=== PATIENT | male | born 1995 | race Caucasian/White ===

== ENCOUNTER 2017-01-20 20:41 | Emergency (ER) | payer OTHER ==
[2017-01-20 21:21] VITALS: BP 140/82
--- NOTE | 2017-01-20 22:22 | ER Document Report ---
ED General - General Chief Complaint: Insect Bite Stated Complaint: POSSIBLE BUG BITE Time Seen by Provider: 01/20/17 22:14 Notes: Patient is a 21-year-old male presents with complaint of a small skin lesion on his left lower leg. He says it has become a little more red in color over the last several days. No redness that spreads beyond the lesion itself. No fevers. No swelling. No other complaints at this time. TRAVEL OUTSIDE OF THE [place] IN LAST 30 DAYS: No - Related Data Allergies/Adverse Reactions: No Known Allergies Allergy (Verified 01/20/17 21:17) Past Medical History - Social History Smoking Status: Never Smoker Frequency of alcohol use: None Drug Abuse: None Family History: Reviewed & Not Pertinent Renal/ Medical History: Denies: Hx Peritoneal Dialysis Review of Systems - Review of Systems Notes: My Normal Review Basic REVIEW OF SYSTEMS: CONSTITUTIONAL : Denies fever, chills, or sweats. Denies recent illness. GASTROINTESTINAL: Denies abdominal pain. Denies nausea, vomiting, or diarrhea. Denies constipation. MUSCULOSKELETAL: Denies neck or back pain or joint pain or swelling. SKIN: Skin lesion left lower leg. HEMATOLOGIC : Denies easy bruising or bleeding. LYMPHATIC: Denies swollen, enlarged glands. NEUROLOGICAL: Denies altered mental status or loss of consciousness. Denies headache. Denies weakness or paralysis or loss of use of either side. Denies problems with gait or speech. Denies sensory or motor loss. ALL OTHER SYSTEMS REVIEWED AND NEGATIVE. Physical Exam - Vital signs Vitals: Temp Pulse Resp BP Pulse Ox 98.5 F 76 14 140/82 H 100 01/20/17 21:17 01/20/17 21:17 01/20/17 21:17 01/20/17 21:17 01/20/17 21:17 - Notes Notes: General Appearance: Well nourished, alert, cooperative, no acute distress, no obvious discomfort. Vitals: reviewed, See vital signs table. Skin: Patient has a nickel sized lesion over the left lower leg that is scaly in appearance. No surrounding erythema. No swelling. Consistent with probable fungal infection. Neuro: speech clear, oriented x 3, normal affect, responds appropriately to questions. Course - Re-evaluation Re-evalutation: 01/21/17 06:33 Patient's lesion appears consistent with that of a fungal infection. I will place him on clotrimazole cream. Encouraged him return to ER if she has any redness or swelling from the lesion, fevers, or any further worsening of it. Patient agrees with plan and will be discharged home. Dictation of this chart was performed using voice recognition software; therefore, there may be some unintended grammatical errors. - Vital Signs Vital signs: Temp Pulse Resp BP Pulse Ox 98.5 F 76 14 140/82 H 100 01/20/17 21:01/20/17 21:01/20/17 21:17 01/20/17 21:01/20/17 21:17 Discharge - Discharge Clinical Impression: Skin lesion Condition: Good Disposition: HOME, SELF-CARE Additional Instructions: Please apply the cream to the lesion on your left leg twice a day. Based on its current appearance I suspect it is of fungal origin. If it does no improve after 1 week of treatment you may need to see a investment specialist for further evaluation or biopsy. Please return to the ER immediately if you have spreading redness of the surrounding skin, swelling, or enlargement of the lesion as this could be a sgin of a bacterial infection. Prescriptions: Clotrimazole 1 applic TP BID #1 cream.gm.
== END 2017-01-20 22:35 | disposition home or self-care (01) ==
LOC: ER 20:41
DX: L98.9 Disorder of the skin and subcutaneous tissue, unspecified (principal); S80.862A Insect bite (nonvenomous), left lower leg, initial encounter; W57.XXXA Bitten or stung by nonvenomous insect and other nonvenomous arthropods, initial encounter
CPT/HCPCS: 99281

== ENCOUNTER 2018-04-12 15:18 | Emergency (ER) | payer OTHER ==
[2018-04-12 15:37] VITALS: BP 151/85
[2018-04-12] MEDS ORDERED: TETRACAINE HCL 0.5% OPH SOLN 4 ML ONE (15:54)
[2018-04-12] MEDS ORDERED: TETRACAINE HCL 0.5% OPH SOLN 4 ML OD ONE (15:59)
--- NOTE | 2018-04-12 16:25 | ER Document Report ---
ED Medical Screen (RME) - General Chief Complaint: Redness of Eye Stated Complaint: RIGHT EYE IRRITATION, SWELLING Time Seen by Provider: 04/12/18 15:56 Mode of Arrival: Ambulatory Information source: Patient TRAVEL OUTSIDE OF THE [place] IN LAST 30 DAYS: No - HPI Patient complains to provider of: Irritation in the right eye Onset: Other - This 22-year-old man presents for evaluation of foreign body sensation in his right eye. He had a sensation that someone might of gotten into his eye after a haircut, began to itch the eye at which time his mother noted that with a little bit swollen and red, they decided to present to the emergency room for further investigation, this patient does have a history of Asperger's disease but is otherwise generally healthy man, does not wear corrective lenses or contacts at this time. No fevers no chills no other trauma to the eye. - Related Data Allergies/Adverse Reactions: No Known Allergies Allergy (Verified 04/12/18 15:59) Past Medical History - General Information source: Patient - Social History Chew tobacco use (# tins/day): No Frequency of alcohol use: Rare Drug Abuse: None Renal/ Medical History: Denies: Hx Peritoneal Dialysis - Immunizations Hx Diphtheria, Pertussis, Tetanus Vaccination: Yes Review of Systems - Review of Systems -: Yes All other systems reviewed and negative Physical Exam - Vital signs Vitals: Temp Pulse Resp BP Pulse Ox 97.9 F 85 20 151/85 H 99 04/12/18 15:36 04/12/18 15:36 04/12/18 15:36 04/12/18 15:36 04/12/18 15:36 - General General appearance: Appears well In distress: None - HEENT Head: Normocephalic Eyes: Other - Edema around the right eye, injection in the right eye Conjunctiva: Injected Cornea: Normal, Flourescein stain uptake - Lateral to the iris of the right eye at the 9 o'clock position, Other - Ecchymosis of the right eye Extraocular movements intact: Yes Eyelashes: Normal Pupils: PERRL - Respiratory Respiratory status: No respiratory distress Chest status: Nontender Breath sounds: Normal Chest palpation: Normal - Cardiovascular Rhythm: Regular Heart sounds: Normal auscultation Murmur: No - Abdominal Inspection: Normal Distension: No distension Tenderness: Nontender - Back Back: Normal - Extremities General upper extremity: Normal inspection, Nontender, Normal ROM, Normal strength General lower extremity: Normal inspection, Nontender, Normal ROM, Normal strength - Neurological Neuro grossly intact: Yes Cognition: Normal Orientation: AAOx4 Lili Coma Scale Eye Opening: Spontaneous Lili Coma Scale Verbal: Oriented [place] Coma Scale Motor: Obeys Commands Lili Coma Scale Total: 15 Speech: Normal Cranial nerves: Normal Motor strength normal: LUE, RUE, LLE, RLE - Psychological Associated symptoms: Normal affect Course - Re-evaluation Re-evalutation: 04/12/18 17:38 22-year-old male who presented with foreign body sensation in the right eye. Examination he is got obvious injection and swelling around the right eye. His eye does demonstrate some ecchymosis. Acuity is relatively spared, says he is at his baseline level of vision. Fluorescein staining of the eye demonstrates a slight uptake in the 9 o'clock position with a small abrasion not a true ulcer. There is no obvious foreign body, the lids were retracted extraocular movements were intact patient's pupils were equal and reactive. Given that the patient has what appears to be a small corneal abrasion will plan for this patient undergo treatment with Cipro drops as well as tears to help moisten the chemosis. He was given strict return precautions and encouraged follow-up with an [employer] team member in the coming days. - Vital Signs Vital signs: Temp Pulse Resp BP Pulse Ox 97.9 F 85 20 151/85 H 99 04/12/18 15:36 04/12/18 15:36 04/12/18 15:36 04/12/18 15:36 04/12/18 15:36 Doctor's Discharge - Discharge Clinical Impression: Corneal abrasion Qualifiers: Encounter type: initial encounter Laterality: right Qualified Code(s): S05.01XA - Injury of conjunctiva and corneal abrasion without foreign body, right eye, initial encounter Chemosis of conjunctiva Qualifiers: Laterality: right Qualified Code(s): H11.421 - Conjunctival edema, right eye Condition: Good Disposition: HOME, SELF-CARE Instructions: Antibiotic Therapy ([facility]), Corneal Abrasion ([facility]), Eyedrop Use ( [facility]) Additional Instructions: He was seen today in the emergency department for your corneal abrasion. He had evaluation including a physical exam, and exam of your eye with staining of your eye. Looks like he may have a small abrasion. Use the antibiotic drop prescribed to you as directed. Use artificial tears at least 3-4 times daily. Return for worsening fevers, chills, pain in the eyeball. Otherwise scheduled appointment with an [employer] team member in the coming week. Prescriptions: Ciprofloxacin HCl [Ciloxan 0.3% Oph Soln 2.5 ml] 50 drop OP QID #1 bottle Dextran 70/Hypromellose [Artificial Tears Drops] 15 ml OP QID #1 drops
== END 2018-04-12 16:40 | disposition home or self-care (01) ==
LOC: ER 15:18
DX: S05.01XA Injury of conjunctiva and corneal abrasion without foreign body, right eye, initial encounter (principal); H11.421 Conjunctival edema, right eye; H57.11 Ocular pain, right eye; F84.5 Asperger's syndrome; X58.XXXA Exposure to other specified factors, initial encounter
CPT/HCPCS: 99282; J3490